=== PATIENT | female | born 1980 | race Caucasian/White ===

== ENCOUNTER 2017-02-08 19:13 | Emergency (ER) | payer OTHER ==
[2017-02-08 20:18] LABS: BILIRUBIN NEGATIVE (NEGATIVE); BLOOD NEGATIVE Ery/uL (NEGATIVE); CLARITY CLEAR (CLEAR); COLOR YELLOW (YELLOW); GLUCOSE (U) NORMAL (NORMAL); KETONE (U) NEGATIVE (NEGATIVE); LEUKOCYTES NEGATIVE Leu/uL (NEGATIVE); NITRITE NEGATIVE (NEGATIVE); PROTEIN NEGATIVE (NEGATIVE); SPECIFIC GRAVITY <=1.005 (1.001-1.030); UROBILINOGEN 0.2 mg/dL (0.2-1.0); pH 5.5 (5.0-9.0)
[2017-02-08 20:29] LABS: BASOPHIL 0.1 % (0-2); EOSINOPHIL 0.6 % (0-5); HCT 33.5 % (37.0-47.0); HGB 11.1 g/dl (12.5-16.0); LYMPHOCYTE 22.2 % (15-48); MCH 27.3 pg (25.0-31.0); MCHC 33.1 g/dL (32.0-36.0); MCV 82.5 fL (78.0-100.0); MPV 8.7 fL (6.0-9.5); NEUTROPHIL 72.1 % (41-80); PLT 373 K/uL (150-400); RBC 4.06 M/uL (4.20-5.40); RDW 13.7 % (11.5-14.0); WBC 14.4 K/uL (4.0-10.5)
[2017-02-08 20:52] LABS: ALBUMIN 3.7 g/dL (3.5-5.0); BILIRUBIN - TOTAL 0.4 mg/dL (0.1-1.0); CREATININE 0.7 mg/dL (0.5-1.0); GLOBULIN (CALCULATION) 2.7 g/dL (2.2-4.2); POTASSIUM 3.6 mmol/L (3.5-5.1); TOTAL PROTEIN 6.4 g/dL (6.4-8.3)
== END 2017-02-08 22:36 | disposition home or self-care (01) ==
LOC: FER 19:13
PROVIDERS: Emergency Medicine
DX: R10.84 Generalized abdominal pain (principal); R11.0 Nausea; K21.9 Gastro-esophageal reflux disease without esophagitis; Z79.899 Other long term (current) drug therapy; Z98.890 Other specified postprocedural states
CPT/HCPCS: 36415; 80053; 81003; 82150; 83690; 85025; J1170; J1885